=== PATIENT | male | born 1990 | race African-American/Black ===

== ENCOUNTER 2016-09-18 18:13 | Emergency (ER) | payer SELFPAY ==
--- NOTE | 2016-09-18 18:33 | Emergency Department Record ---
History of Present Illness - General Chief Complaint: Abdominal Pain Stated Complaint: ABD PAIN Time Seen by Provider: 09/18/16 18:32 Source: Patient Mode of Arrival: Ambulatory Limitations: No limitations - History of Present Illness Initial Comments: The patient is here due to a 2-3 hour hx of sharp, crampy AP all over associated with nausea but no vomiting. The pain is sharp and stabbing at times. He has no hx of similar issues or problems and no hx of abdominal surgeries. The patient was well prior and has had no recent illnesses. There is no back pain, fever, chills, or dysuria. MD Complaint: Abdominal pain Onset/Timin -: Hour(s) Location: Diffuse Radiation: L flank, R flank Severity: Severe Quality: Cramping, Sharp, Stabbing Consistency: Constant, Intermittent Improves With: Nothing Worsens With: Nothing Associated Symptoms: Diarrhea, Nausea - Related Data Home Medications Medication Instructions Recorded Confirmed Last Taken No Home Med [NO HOME MEDS] 09/18/16 09/18/16 Unknown Allergies Allergy/AdvReac Type Severity Reaction Status Date / Time No Known Drug Allergies Allergy Verified 09/18/16 18:26 Travel Screening - Travel/Exposure Within Last 30 Days Have you traveled within the last 30 days?: No Review of Systems Constitutional: Denies: Chills, Fever Eyes: Denies: Eye discharge ENT: Denies: Congestion Respiratory: Denies: Cough, Dyspnea Cardiovascular: Denies: Chest pain Past Medical History - SOCIAL HISTORY Smoking Status: Current some day smoker Alcohol Use: Occassional Drug Use: None - RESPIRATORY Hx Respiratory Disorders: No - CARDIOVASCULAR Hx Cardio Disorders: No - NEURO Hx Neuro Disorders: No - GI Hx GI Disorders: No - Hx Genitourinary Disorders: No - ENDOCRINE Hx Endocrine Disorders: No - MUSCULOSKELETAL Hx Musculoskeletal Disorders: No - PSYCH Hx Psych Problems: No - HEMATOLOGY/ONCOLOGY Hx Hematology/Oncology Disorders: No Family Medical History Any Significant Family History?: No Physical Exam - General General Appearance: Alert, Oriented x3, Cooperative, No acute distress - Head Head exam: Atraumatic, Normocephalic, Normal inspection - Eye Eye exam: Normal appearance, PERRL - ENT Throat exam: Normal inspection. negative: Tonsillar erythema, Tonsillar exudate - Neck Neck exam: Normal inspection, Full ROM. negative: Tenderness - Respiratory Respiratory exam: Normal lung sounds bilaterally. negative: Respiratory distress - Cardiovascular Cardiovascular Exam: Regular rate, Normal rhythm, Normal heart sounds - GI/Abdominal GI/Abdominal exam: Soft, Normal bowel sounds, Tenderness (There is diffuse tenderness in all 4 quads increased in the epigastric area.). negative: Guarding, Pulsatile mass, Rebound, Rigid - Extremities Extremities exam: Normal inspection, Full ROM, Normal capillary refill. negative: Tenderness - Neurological Neurological exam: Alert, Normal gait. negative: Abnormal gait, Motor sensory deficit Course Vital Signs 09/18/16 18:22 Temperature 98.2 F Pulse Rate 81 Respiratory 20 Rate Blood Pressure 116/80 Pulse Ox 100 - Reevaluation(s) Reevaluation #1: The patient's care will be turned over to Dr. Tejada due to shift change. 09/18/16 18:53 Medical Decision Making - Lab Data Result diagrams: 09/18/16 18:37 09/18/16 18:37 Disposition Forms: Patient Portal Access
[2016-09-18] MEDS ORDERED: ONDANSETRON HCL IV 4 MG/2 ML VIAL IV ONE (18:37)
[2016-09-18] MEDS ORDERED: MAGNESIUM HYDROXIDE/AL HYDROX 10 ML, LIDOCAINE VISC 2% 200 MG, PHENOBARB/HYOSCY/ATROPIN... PO ONE ×3 (18:37)
[2016-09-18] MEDS ORDERED: 0.9 % SODIUM CHLORIDE 1,000 ML BAG IV ONE (18:37)
[2016-09-18 18:58] LABS: BASO % 0.1 % (0-6); EOS % 1.2 % (0-6); GRAN % 75.1 % (47-80); HEMATOCRIT 42.6 % (42.0-52.0); HEMOGLOBIN 14.8 gm/dl (14.0-18.0); LYMPH % 14.7 % (16-45); MEAN CELL VOLUME 90.3 fl (81-97); MEAN CORPUSCULAR HEMOGLOBIN 31.4 pg (27-33); MEAN CORPUSCULAR HGB CONC 34.7 g/dl (32-36); MEAN PLATELET VOLUME 10.2 fl (7.4-10.4); MONO % 8.9 % (0-9); PLATELET COUNT 249 K/uL (130-400); RED BLOOD COUNT 4.72 M/uL (4.40-5.70); RED CELL DISTRIBUTION WIDTH 12.1 % (11.5-14.5); WHITE BLOOD COUNT W/O DIFF 8.4 K/uL (4.2-12.2)
--- NOTE | 2016-09-18 19:09 | Emergency Department Record ---
History of Present Illness - General Chief Complaint: Abdominal Pain Stated Complaint: ABD PAIN Time Seen by Provider: 09/18/16 18:32 Source: Patient Mode of Arrival: Ambulatory Limitations: No limitations - History of Present Illness Initial Comments: 26 yo male presents with abdominal pain that started this afternoon. The case was signed out at shift change by Dr Yuen. The patient was seen at the bedside. He is comfortable without pain at this time. His pain was upper to mid abdomen. Sharp. Nausea but no vomiting. MD Complaint: Abdominal pain Onset/Timin -: Hour(s) Location: Diffuse Radiation: L flank, R flank Severity: Severe Quality: Cramping, Sharp, Stabbing Consistency: Constant, Intermittent Improves With: Nothing Worsens With: Nothing Associated Symptoms: Diarrhea, Nausea - Related Data Home Medications Medication Instructions Recorded Confirmed Last Taken No Home Med [NO HOME MEDS] 09/18/16 09/18/16 Unknown Allergies Allergy/AdvReac Type Severity Reaction Status Date / Time No Known Drug Allergies Allergy Verified 09/18/16 18:26 Travel Screening - Travel/Exposure Within Last 30 Days Have you traveled within the last 30 days?: No Review of Systems Constitutional: Denies: Chills, Fever Eyes: Denies: Eye discharge ENT: Denies: Congestion Respiratory: Denies: Cough, Dyspnea Cardiovascular: Denies: Chest pain Past Medical History - SOCIAL HISTORY Smoking Status: Current some day smoker Alcohol Use: Occassional Drug Use: None - RESPIRATORY Hx Respiratory Disorders: No - CARDIOVASCULAR Hx Cardio Disorders: No - NEURO Hx Neuro Disorders: No - GI Hx GI Disorders: No - Hx Genitourinary Disorders: No - ENDOCRINE Hx Endocrine Disorders: No - MUSCULOSKELETAL Hx Musculoskeletal Disorders: No - PSYCH Hx Psych Problems: No - HEMATOLOGY/ONCOLOGY Hx Hematology/Oncology Disorders: No Family Medical History Any Significant Family History?: No Physical Exam - General General Appearance: Alert, Oriented x3, Cooperative, No acute distress Limitations: No limitations - Head Head exam: Normal inspection - Eye Eye exam: Normal appearance, PERRL. negative: Conjunctival injection, Scleral icterus - ENT ENT exam: Normal exam Ear exam: Normal external inspection Nasal Exam: Normal inspection Mouth exam: Normal external inspection Teeth exam: Normal inspection - Neck Neck exam: Normal inspection, Full ROM. negative: Tenderness - Respiratory Respiratory exam: Normal lung sounds bilaterally. negative: Respiratory distress - Cardiovascular Cardiovascular Exam: Regular rate, Normal rhythm, Normal heart sounds - GI/Abdominal GI/Abdominal exam: Soft, Normal bowel sounds. negative: Distended, Guarding, Rebound, Rigid, Tenderness - Rectal Rectal exam: Deferred - exam: Deferred - Back Back exam: Reports: Normal inspection, Full ROM. Denies: Muscle spasm, Rash noted, Tenderness - Neurological Neurological exam: Alert, Oriented X3 - Psychiatric Psychiatric exam: Normal affect, Normal mood. negative: Agitated, Anxious - Skin Skin exam: Dry, Intact, Normal color, Warm Course Vital Signs 09/18/16 18:22 Temperature 98.2 F Pulse Rate 81 Respiratory 20 Rate Blood Pressure 116/80 Pulse Ox 100 - Reevaluation(s) Reevaluation #1: The labs were reviewed No acute changes of the CBC,CMP,Lipase, or UA 09/18/16 19:52 Reevaluation #2: The labs were reveiwed with the patient His pain is now 0/10 He denies any nausea His abdomen is very soft and not tender We discussed reasons to return or go to and ER such as fever, pain return, or nausea or vomiting 09/18/16 19:56 Medical Decision Making - Lab Data Result diagrams: 09/18/16 18:45 09/18/16 18:45 Lab Results 09/18/16 Range/Units 18:45 WBC 8.4 (4.2-12.2) K/uL RBC 4.72 (4.40-5.70) M/uL Hgb 14.8 (14.0-18.0) gm/dl Hct 42.6 (42.0-52.0) % MCV 90.3 (81-97) fl MCH 31.4 (27-33) pg MCHC 34.7 (32-36) g/dl RDW 12.1 (11.5-14.5) % Plt Count 249 (130-400) K/uL MPV 10.2 (7.4-10.4) fl Gran % 75.1 (47-80) % Lymphocytes % 14.7 L (16-45) % Monocytes % 8.9 (0-9) % Eosinophils % 1.2 (0-6) % Basophils % 0.1 (0-6) % Disposition Disposition: Discharge Clinical Impression: Abdominal pain Qualifiers: Abdominal location: epigastric Qualified Code(s): R10.13 - Epigastric pain Disposition: Home, Self-Care Condition: (1) Good Instructions: Abdominal Pain (ED) Additional Instructions: Liquids only tonight Return if you have fever, pain return or nausea and vomiting Forms: Patient Portal Access Time of Disposition: 19:58
[2016-09-18 19:16] LABS: ALBUMIN 3.9 gm/dL (3.5-5.0); ALKALINE PHOSPHATASE 58 U/L (38-126); ALT/SGPT 22 U/L (21-72); ANION GAP 12.7 (7-16); AST/SGOT 25 U/L (17-59); BILIRUBIN,TOTAL 0.29 mg/dL (0.2-1.3); BLOOD UREA NITROGEN 12 mg/dL (9-20); CARBON DIOXIDE 24.3 mmol/L (22-30); CREATININE 1.1 mg/dL (0.66-1.25); EST GLOMERULAR FILTRATION RATE > 60 ml/min; GLUCOSE,RANDOM 120 mg/dL (70-110); LIPASE 65 U/L (23-300); TOTAL PROTEIN 6.4 gm/dL (6.3-8.2)
[2016-09-18 19:40] LABS: URINE APPEARANCE SL CLOUDY; URINE BILIRUBIN NEGATIVE (NEGATIVE); URINE BLOOD NEGATIVE (NEGATIVE); URINE COLOR YELLOW; URINE GLUCOSE (UA) NEGATIVE (NEGATIVE); URINE KETONE NEGATIVE (NEGATIVE); URINE LEUKOCYTE ESTERASE NEGATIVE (NEGATIVE); URINE NITRITE NEGATIVE (NEGATIVE); URINE PROTEIN NEGATIVE (NEGATIVE); URINE UROBILINOGEN 0.2 E.U./dL (0.20 - 1.00)
[2016-09-18] MEDS ORDERED: ONDANSETRON 4 MG ODT TABLET SL ONE (19:56)
== END 2016-09-18 20:09 | disposition home or self-care (01) ==
LOC: ER 18:13
DX: R10.13 Epigastric pain (principal); R19.7 Diarrhea, unspecified; R11.0 Nausea
CPT/HCPCS: 99284 ×2; 96374; 96361; 83690; 85025; 80076; 80048; 81003; G0480; J2405; J3490; 80320; J7030